=== PATIENT | female | born 1985 | race Caucasian/White ===

== ENCOUNTER 2016-09-22 19:53 | Emergency (ER) | payer OTHER ==
[2016-09-22] MEDS ORDERED: DEXAMETHASONE SOD PHOS 10 MG/1 ML VIAL ONE (21:55)
[2016-09-22] MEDS ORDERED: AMOXICILLIN TRIHYDRATE 250 MG CAPSULE ONE (21:55)
[2016-09-22] MEDS ORDERED: HYDROCODONE/ACETAMINOPHEN 5/325MG TABLET ONE (21:55)
== END 2016-09-22 22:22 | disposition home or self-care (01) ==
LOC: ED 19:53
DX: J02.9 Acute pharyngitis, unspecified (principal)
CPT/HCPCS: 87880; 99283 ×2; A9270 ×2; J1100